=== PATIENT | male | born 1955 | race Caucasian/White ===

== ENCOUNTER 2021-07-23 17:39 | Emergency (ER) | payer OTHER, MEDICAID ==
[~2021-07-23] VITALS: Ht 162.6 cm; Wt 70.3 kg
[2021-07-23 17:53] VITALS: BP_SYST 110
[2021-07-23 18:39] LABS: BASOPHILS # (AUTO) 0.1 K/uL (0.0-0.2); BASOPHILS % (AUTO) 0.9 % (0.0-2.0); EOSINOPHILS # (AUTO) 0.2 K/uL (0.0-0.4); EOSINOPHILS % (AUTO) 3.4 % (0.0-4.0); HEMATOCRIT 37.6 % (36-54); LYMPHOCYTES # (AUTO) 2.4 K/uL (1.0-5.5); LYMPHOCYTES % (AUTO) 33.2 % (20.5-51.5); MEAN CORPUSCULAR HEMOGLOBIN 33 pg (27-31); MEAN CORPUSCULAR HGB CONC 35 % (32-36); MEAN CORPUSCULAR VOLUME 95 fL (79.0-98.0); MONOCYTES # (AUTO) 0.8 K/uL (0.0-1.0); NEUTROPHILS # (AUTO) 3.6 K/uL (1.8-7.7); NEUTROPHILS % (AUTO) 50.5 % (40.0-70.0); PLATELET COUNT (AUTO) 223 K/uL (130-430); RED BLOOD CELL COUNT(AUTO) 3.98 MIL/uL (4.2-6.2); RED CELL DISTRIBUTION WIDTH 13.8 % (9.0-15.0); WHITE BLOOD COUNT (AUTO) 7.1 K/uL (4.8-10.8)
[2021-07-23 18:47] LABS: ANION GAP 5 (5-15); CALCIUM 8.8 mg/dL (8.4-11.0); CHLORIDE 107 mmol/L (98-107); CREATININE 1.01 mg/dL (0.55-1.30); GLUCOSE 90 mg/dL (70-99); POTASSIUM 3.8 mmol/L (3.5-5.1); SODIUM SERUM 142 mmol/L (136-145); UREA NITROGEN, BLOOD 18 mg/dL (8-21)
[2021-07-23 18:53] LABS: ALANINE AMINOTRANSFERASE 21 U/L (12-78); ALBUMIN 2.9 g/dL (3.4-4.8); ASPARTATE AMINOTRANSFERASE 13 U/L (10-37); TOTAL BILIRUBIN 0.2 mg/dL (0.0-1.0)
[2021-07-23 18:58] LABS: ACETAMINOPHEN < 1 ug/mL (1-30); ALCOHOL, BLOOD < 3 mg/dL (<10); GFR AFRICAN AMERICAN 94 mL/min (>90)
[2021-07-23 19:06] LABS: CHOLESTEROL 81 mg/dL (<200); HDL CHOLESTEROL 53 mg/dL (>45); LDL CHOLESTEROL 39 mg/dL (<100); TRIGLYCERIDES 30 mg/dL (30-150)
[2021-07-23 22:45] VITALS: BP_SYST 123
== END 2021-07-23 22:45 ==
LOC: SED 17:39
DX: R44.0 Auditory hallucinations (principal); I49.9 Cardiac arrhythmia, unspecified; Z88.5 Allergy status to narcotic agent; Z88.8 Allergy status to other drugs, medicaments and biological substances; Z20.822 Contact with and (suspected) exposure to COVID-19
CPT/HCPCS: 36415; 80053; 80061; 83036; 85025; 87081; 87426; 93005; 99285; G0480; G0481; G0482